=== PATIENT | male | born 1990 | race Caucasian/White ===

== ENCOUNTER 2024-12-27 21:02 | Emergency (ER) | payer MEDICAID ==
[~2024-12-27] VITALS: Ht 185.4 cm; Wt 65.5 kg
[2024-12-27 21:15] VITALS: O2SAT 100
[2024-12-27 22:14] VITALS: BP 119/64; PULSE 96; RESP 16; TEMP 36.6; O2SAT 99
[2024-12-28] MEDS ORDERED: CLOT15CR27 TP (01:51)
== END 2024-12-28 02:03 | disposition home or self-care (01) ==
LOC: ER 21:02
DX: B35.3 Tinea pedis (principal)
CPT/HCPCS: 99281; 99282